=== PATIENT | male | born 1955 | race American Indian/Alaskan Native ===

== ENCOUNTER 2018-12-31 14:03 | Emergency (ER) | payer MEDICAID ==
[2018-12-31 14:56] LABS: Basophils # (Auto) 0.1 K/mm3 (0.0-0.1); Basophils % (Auto) 0.4 % (0.0-1.8); Eosinophils # (Auto) 0.3 K/mm3 (0.0-0.4); Eosinophils % (Auto) 1.8 % (0.0-4.3); Hematocrit 34.1 % (35.5-45.6); Hemoglobin 11.3 gm/dl (11.8-15.2); Lymphocytes # (Auto) 1.8 K/mm3 (1.2-5.4); Lymphocytes % (Auto) 12.5 % (13.4-35.0); Mean Corpuscular HGB Conc 33 % (32-34); Mean Corpuscular Volume 92 fl (84-94); Monocytes % (Auto) 7.2 % (0.0-7.3); Platelet Count 288 K/mm3 (140-440); Red Blood Count 3.71 M/mm3 (3.65-5.03); Red Cell Distribution Width 15.8 % (13.2-15.2)
[2018-12-31 15:11] LABS: Calcium 9.3 mg/dL (8.4-10.2)
[2018-12-31] MEDS ORDERED: DUONEB *Not for PRN Use IH ONE (16:17)
[2018-12-31 17:11] LABS: Basophils % (Auto) 0.3 % (0.0-1.8); Eosinophils # (Auto) 0.1 K/mm3 (0.0-0.4); Eosinophils % (Auto) 0.5 % (0.0-4.3); Hematocrit 33.3 % (35.5-45.6); Hemoglobin 11.1 gm/dl (11.8-15.2); Lymphocytes # (Auto) 1.4 K/mm3 (1.2-5.4); Lymphocytes % (Auto) 10.8 % (13.4-35.0); Mean Corpuscular HGB Conc 33 % (32-34); Mean Corpuscular Volume 91 fl (84-94); Monocytes # (Auto) 0.6 K/mm3 (0.0-0.8); Monocytes % (Auto) 4.5 % (0.0-7.3); Platelet Count 272 K/mm3 (140-440); Red Blood Count 3.64 M/mm3 (3.65-5.03)
--- NOTE | 2018-12-31 17:56 | Emergency Department Report ---
ED General Adult HPI - General Chief complaint: Hypoglycemia Stated complaint: SEIZURE Time Seen by Provider: 12/31/18 15:08 Source: EMS Mode of arrival: Stretcher Limitations: No Limitations - History of Present Illness Initial comments: The patient presents to the emergency department with a chief complaint of hypoglycemia. The patient is an insulin dependent diabetic who ate a small meal this morning entered his regular dose of insulin. Upon EMSs arrival to skilled nursing his glucose was 38. Patient received oral glucose and D50 in route. Upon arrival to the ED the patient was given a meal tray. There was concern that the patient was having a seizure and this was likely convulsions from the hypoglycemia at the skilled nursing where to convulsions occurred. -: Sudden Severity scale (0 -10): 0 Consistency: constant Improves with: none Worsens with: none Associated Symptoms: denies other symptoms Treatments Prior to Arrival: none - Related Data Allergies Allergy/AdvReac Type Severity Reaction Status Date / Time No Known Allergies Allergy Unverified 12/31/18 14:31 ED Review of Systems ROS: Stated complaint: SEIZURE Other details as noted in HPI Comment: All other systems reviewed and negative Constitutional: denies: chills, fever Eyes: denies: eye pain, eye discharge, vision change ENT: denies: ear pain, throat pain Respiratory: denies: cough, shortness of breath, wheezing Cardiovascular: denies: chest pain, palpitations Endocrine: no symptoms reported Gastrointestinal: denies: abdominal pain, nausea, diarrhea Genitourinary: denies: urgency, dysuria Musculoskeletal: denies: back pain, joint swelling, arthralgia Skin: denies: rash, lesions Neurological: denies: headache, weakness, paresthesias Psychiatric: denies: anxiety, depression Hematological/Lymphatic: denies: easy bleeding, easy bruising ED Past Medical Hx - Past Medical History Previous Medical History?: Yes Hx Hypertension: Yes Hx CVA: Yes Hx Diabetes: Yes ED Physical Exam - General Limitations: No Limitations General appearance: alert, in no apparent distress - Head Head exam: Present: atraumatic, normocephalic - Eye Eye exam: Present: normal appearance, PERRL, EOMI - ENT ENT exam: Present: mucous membranes moist - Neck Neck exam: Present: normal inspection - Respiratory Respiratory exam: Present: normal lung sounds bilaterally, wheezes. Absent: respiratory distress, rales - Cardiovascular Cardiovascular Exam: Present: regular rate, normal rhythm. Absent: systolic murmur, diastolic murmur, rubs, gallop - GI/Abdominal GI/Abdominal exam: Present: soft, normal bowel sounds. Absent: distended, tenderness - Rectal Rectal exam: Present: deferred - Extremities Exam Extremities exam: Present: normal inspection - Back Exam Back exam: Present: normal inspection - Neurological Exam Neurological exam: Present: alert, oriented X3, CN II-XII intact. Absent: motor sensory deficit - Psychiatric Psychiatric exam: Present: normal affect, normal mood - Skin Skin exam: Present: warm, dry, intact, normal color. Absent: rash ED Course Vital Signs 12/31/18 15:36 Temperature 98.1 F Pulse Rate 67 Respiratory 18 Rate Blood Pressure 163/79 [Right] O2 Sat by Pulse 100 Oximetry ED Medical Decision Making - Lab Data Result diagrams: 12/31/18 16:52 12/31/18 14:48 Lab Results 12/31/18 12/31/18 12/31/18 Range/Units 14:47 14:48 14:48 WBC 14.3 H (4.5-11.0) K/mm3 RBC 3.71 (3.65-5.03) M/mm3 Hgb 11.3 L (11.8-15.2) gm/dl Hct 34.1 L (35.5-45.6) % MCV 92 (84-94) fl MCH 30 (28-32) pg MCHC 33 (32-34) % RDW 15.8 H (13.2-15.2) % Plt Count 288 (140-440) K/mm3 Lymph % (Auto) 12.5 L (13.4-35.0) % [place] % (Auto) 7.2 (0.0-7.3) % Eos % (Auto) 1.8 (0.0-4.3) % Baso % (Auto) 0.4 (0.0-1.8) % Lymph # 1.8 (1.2-5.4) K/mm3 [place] # 1.0 H (0.0-0.8) K/mm3 Eos # 0.3 (0.0-0.4) K/mm3 Baso # 0.1 (0.0-0.1) K/mm3 Seg Neutrophils % 78.1 H (40.0-70.0) % Seg Neutrophils # 11.1 H (1.8-7.7) K/mm3 Sodium 139 (137-145) mmol/L Potassium 3.6 (3.6-5.0) mmol/L Chloride 103.0 (98-107) mmol/L Carbon Dioxide 19 L (22-30) mmol/L Anion Gap 21 mmol/L BUN 16 (9-20) mg/dL Creatinine 1.6 H (0.8-1.5) mg/dL Estimated GFR 44 ml/min BUN/Creatinine Ratio 10 % Glucose 81 (75-100) mg/dL POC Glucose 97 (70-105) Calcium 9.3 (8.4-10.2) mg/dL NT-Pro-B Natriuret Pep (0-900) pg/mL 12/31/18 12/31/18 Range/Units 16:52 16:52 WBC 13.1 H (4.5-11.0) K/mm3 RBC 3.64 L (3.65-5.03) M/mm3 Hgb 11.1 L (11.8-15.2) gm/dl Hct 33.3 L (35.5-45.6) % MCV 91 (84-94) fl MCH 31 (28-32) pg MCHC 33 (32-34) % RDW 16.0 H (13.2-15.2) % Plt Count 272 (140-440) K/mm3 Lymph % (Auto) 10.8 L (13.4-35.0) % [place] % (Auto) 4.5 (0.0-7.3) % Eos % (Auto) 0.5 (0.0-4.3) % Baso % (Auto) 0.3 (0.0-1.8) % Lymph # 1.4 (1.2-5.4) K/mm3 [place] # 0.6 (0.0-0.8) K/mm3 Eos # 0.1 (0.0-0.4) K/mm3 Baso # 0.0 (0.0-0.1) K/mm3 Seg Neutrophils % 83.9 H (40.0-70.0) % Seg Neutrophils # 11.0 H (1.8-7.7) K/mm3 Sodium (137-145) mmol/L Potassium (3.6-5.0) mmol/L Chloride (98-107) mmol/L Carbon Dioxide (22-30) mmol/L Anion Gap mmol/L BUN (9-20) mg/dL Creatinine (0.8-1.5) mg/dL Estimated GFR ml/min BUN/Creatinine Ratio % Glucose (75-100) mg/dL POC Glucose (70-105) Calcium (8.4-10.2) mg/dL NT-Pro-B Natriuret Pep 509.2 (0-900) pg/mL - Medical Decision Making Patient received a breathing treatment for his wheezing upon repeat lung exam at 5:45 PM the wheezing had resolved Elevated white blood cell count is likely due to acute stress reaction from the hypoglycemia Critical care attestation.: If time is entered above; I have spent that time in minutes in the direct care of this critically ill patient, excluding procedure time. ED Disposition Clinical Impression: Hypoglycemia Disposition: DC-01 TO HOME OR SELFCARE Is pt being admited?: No Does the pt Need Aspirin: No Condition: Stable Instructions: Diabetic Hypoglycemia (ED) Additional Instructions: return if worse Referrals: LEONA MARK MD [Primary Care Provider] - 3-5 Days [facility] [Provider Group] - 3-5 Days [facility] [Provider Group] - 3-5 Days Time of Disposition: 17:56
[2018-12-31 20:10] VITALS: BP 158/82
== END 2018-12-31 19:00 | disposition home or self-care (01) ==
LOC: ED 14:03
DX: E11.649 Type 2 diabetes mellitus with hypoglycemia without coma (principal); I10 Essential (primary) hypertension; Z86.73 Personal history of transient ischemic attack (TIA), and cerebral infarction without residual deficits
CPT/HCPCS: 36415; 80048; 82962; 83880; 85025; 94640

== ENCOUNTER 2019-01-15 12:24 | Outpatient (CLI) | payer MEDICAID ==
--- NOTE | 2019-01-15 16:55 | Magnetic Resonance Report ---
PROCEDURE: MR BRAIN WO CON TECHNIQUE: MRI examination of the brain without IV contrast HISTORY: G93.89 OTHER SPECIFIED DISORDERS OF BRAIN/I69.351 HEMIPLEGIA FOLLOW COMPARISONS: None FINDINGS: Nonspecific several punctate susceptibility signal void foci are scattered throughout the cerebral he mispheres bilaterally. The included air filled sinuses contain no acute fluid level. Retention cyst right maxillary sinus. S light mucosal thickening bilateral maxillary sinuses. Foci of T2 hyperintensity in the cerebral white matter, while nonspecific, are present and usually at tributed to chronic ischemic gliosis. It can occur secondary to the normal aging process, hypertensio n, vasculitis, migraine related changes, or arterial sclerotic vascular disease. The differential inc ludes any cause of gliosis as well as demyelination in the appropriate clinical setting. There is ventricular and sulcal prominence compatible with global symmetric cerebrocortical atrophy. The brain is without mass, mass effect, hemorrhage, or acute infarct. There are no areas of brain restricted diffusion to suggest an acute ischemic infarct. There is no midline shift or brain edema. Chronic appearing infarct anterior inferior aspect of left basal ganglia with encephalomalacia and vo lume loss as well as slight susceptibility artifact. IMPRESSION: No acute CVA or brain mass Multifocal bilateral susceptibility signal void foci are nonspecific and suggest underlying chronic p rocess. Differential includes prior trauma, cerebral amyloid, chronic micro hematoma, or cortical ca lcification. Correlation with head CT may be useful to evaluate for calcification, in the appropriat e clinical setting. Chronic-appearing infarct anterior inferior aspect left basal ganglia This document is electronically signed by Oswald Foote MD., January 15 2019 04:53:34 PM ET
== END 2019-01-15 12:25 | disposition home or self-care (01) ==
LOC: MRI 12:24
PROVIDERS: ATTEND Family Medicine
DX: G93.89 Other specified disorders of brain (principal); I10 Essential (primary) hypertension
CPT/HCPCS: 70551